=== PATIENT | female | born 1960 | race Hispanic/Latino ===

== ENCOUNTER 2017-12-11 22:15 | Emergency (ER) | payer MEDICAID, OTHER ==
[2017-12-11 22:15] VITALS: BMI 31.8
[2017-12-11 23:10] VITALS: RESP 20
--- NOTE | 2017-12-12 00:33 | C.PDOC ---
History Of Present Illness 57 year old female with PMHx of Afib presents to the ED c/o generalized body aches, chest pain, headache and nasal congestion that started today. Patient states she also has right ear ache, and a sore throat. Patient has not taking any medications for her symptoms. Patient denies fever, chills, nausea, vomit, diarrhea, back pain, dysuria, hematuria. Chief Complaint (Nursing): Chest Pain History Per: Patient History/Exam Limitations: no limitations Onset/Duration Of Symptoms: Days Current Symptoms Are (Timing): Still Present Quality: "Pain" Modifying Factors: None Exacerbating Factors: None Alleviating Factors: None Recent travel outside of the [place]: No Additional History Per: Patient Past Medical History Reviewed: Historical Data, Nursing Documentation, Vital Signs Vital Signs: Last Vital Signs Temp 97.2 F L 12/12/17 00:58 Pulse 69 12/12/17 00:58 Resp 20 12/12/17 00:58 BP 118/66 12/12/17 00:58 Pulse Ox 95 12/12/17 01:53 - Medical History PMH: Cardia Arrhythmia (Afib, cardiomyopathy), HTN, Kidney Stones, Malignancy ( Breast cancer), Chronic Kidney Disease Surgical History: No Surg Hx - [facility] Procedures APPLICATION OF SPLINT (12/07/13) EXCISION OF LEFT AXILLARY LYMPHATIC, OPEN APPROACH, DIAGN (08/04/15) EXCISION OF RIGHT AXILLARY LYMPHATIC, OPEN APPROACH, DIAGN (08/04/15) INSERTION OF TISSUE DELIVERY DRIVER INTO BI BREAST, OPEN APPROACH (08/04/15) RESECTION OF BILATERAL BREAST, OPEN APPROACH (08/04/15) Family History: States: Unknown Family Hx - Social History Hx Tobacco Use: Yes Hx Alcohol Use: No Hx Substance Use: No - Immunization History Hx Tetanus Toxoid Vaccination: Yes Hx Influenza Vaccination: No Hx Pneumococcal Vaccination: No Review Of Systems Constitutional: Positive for: Malaise. Negative for: Fever, Chills ENT: Positive for: Nose Congestion, Throat Pain Cardiovascular: Positive for: Chest Pain. Negative for: Palpitations Respiratory: Positive for: Cough. Negative for: Shortness of Breath Gastrointestinal: Negative for: Nausea, Vomiting, Abdominal Pain Skin: Negative for: Rash Neurological: Positive for: Headache. Negative for: Weakness, Numbness Physical Exam - Physical Exam Appears: Non-toxic, No Acute Distress Skin: Normal Color, Warm, Dry Head: Atraumatic, Normacephalic Eye(s): bilateral: Normal Inspection Nose: No Discharge, No Deformity Oral Mucosa: Moist Throat: Normal, No Erythema, No Exudate Neck: Normal ROM, Supple Chest: Symmetrical Cardiovascular: Rhythm Irregular (Irregularly), No Murmur Respiratory: Normal Breath Sounds, No Rales, No Rhonchi, No Wheezing Gastrointestinal/Abdominal: Soft, No Tenderness, No Guarding, No Rebound Extremity: Normal ROM, No Pedal Edema, No Deformity, No Swelling Neurological/Psych: Oriented x3, Normal Speech, Normal Cognition Gait: Steady ED Course And Treatment O2 Sat by Pulse Oximetry: 95 (On RA) Pulse Ox Interpretation: Normal Medical Decision Making Medical Decision Making: Impression: flu like symptoms Plan: * Tamiflu 75 mg PO Disposition - Disposition Referrals: [facility] [Outside] Disposition: HOME/ ROUTINE Disposition Time: 00:31 Condition: GOOD Prescriptions: Oseltamivir [Tamiflu] 75 mg PO BID #10 cap Instructions: Flu Forms: [facility] (Japanese) - Clinical Impression Clinical Impression: Chest discomfort, Influenza - Scribe Statement The provider has reviewed the documentation as recorded by the Scribe Richard Munson All medical record entries made by the Scribe were at my direction and personally dictated by me. I have reviewed the chart and agree that the record accurately reflects my personal performance of the history, physical exam, medical decision making, and the department course for this patient. I have also personally directed, reviewed, and agree with the discharge instructions and disposition.
[2017-12-12 01:00] VITALS: BP 118/66; PULSE 69; TEMP 97.2
[2017-12-12 01:51] VITALS: O2SAT 95
== END 2017-12-12 00:59 | disposition home or self-care (01) ==
LOC: C.ER 22:15
DX: J11.1 Influenza due to unidentified influenza virus with other respiratory manifestations (principal); R07.89 Other chest pain

== ENCOUNTER 2018-05-11 08:01 | Day surgery (SDC) | payer OTHER ==
[2018-05-11 08:35] VITALS: BMI 32.1
[2018-05-11] MEDS ORDERED: Midazolam 2 MG/2 ML VIAL ONE (09:41)
[2018-05-11] MEDS ORDERED: Propofol 10 mg/ml Inj (20 ML) ONE ×2 (09:41→10:00)
[2018-05-11] MEDS ORDERED: Lidocaine Hydrochloride 5 ML INJ ONE (10:00)
[2018-05-11 10:49] VITALS: TEMP 99.2; O2SAT 97
[2018-05-11 11:10] VITALS: BP 142/90; PULSE 76; RESP 16
== END 2018-05-11 11:30 | disposition home or self-care (01) ==
LOC: C.ENDO 08:01
PROVIDERS: ATTEND Internal Medicine Gastroenterology
DX: Z12.11 Encounter for screening for malignant neoplasm of colon (principal); D12.0 Benign neoplasm of cecum; D12.2 Benign neoplasm of ascending colon; D12.3 Benign neoplasm of transverse colon
CPT/HCPCS: 45380; 88305; J2250; J2704

== ENCOUNTER 2018-11-30 13:30 | Outpatient (CLI) | payer OTHER | END 2018-11-30 13:31 | disposition home or self-care (01) | LOC: C.USIC 13:30 | DX: C50.412 Malignant neoplasm of upper-outer quadrant of left female breast (principal) ==